=== PATIENT | female | born 1985 | race Two or more races ===

== ENCOUNTER 2018-02-17 07:29 | Outpatient (CLI) | payer OTHER | END 2018-02-17 07:36 | disposition home or self-care (01) | LOC: SONOGRAMA 07:29 → MAMO-SONO 07:45 | DX: N60.11 Diffuse cystic mastopathy of right breast (principal) ==

== ENCOUNTER 2018-05-22 07:15 | Inpatient (IN) | payer OTHER ==
[~2018-05-22] VITALS: Ht 180.3 cm; Wt 130.0 kg
[2018-06-04] MEDS ORDERED: PRENATAL 19 CH1 EACH PO (22:15)
[2018-06-04] MEDS ORDERED: PNEU16DI2 (22:16)
== END 2018-06-06 10:00 | DRG 775 ==
LOC: OB/GYN 06-04 21:47 → LDR 06-04 21:47 → OB/GYN 06-04 22:48 → LDR 06-13 07:15
PROC: 10E0XZZ Delivery of Products of Conception, External Approach (ICD-10-PCS; principal; 2018-06-04)
PROC: 0KQM0ZZ Repair Perineum Muscle, Open Approach (ICD-10-PCS; 2018-06-04)
PROC: 0W8NXZZ Division of Female Perineum, External Approach (ICD-10-PCS; 2018-06-04)
PROC: 4A1HXCZ Monitoring of Products of Conception, Cardiac Rate, External Approach (ICD-10-PCS; 2018-06-04)
PROC: 4A033R1 Measurement of Arterial Saturation, Peripheral, Percutaneous Approach (ICD-10-PCS; 2018-06-04)
DX: O70.1 Second degree perineal laceration during delivery (principal); Z37.0 Single live birth; Z3A.38 38 weeks gestation of pregnancy; Z22.330 Carrier of Group B streptococcus